=== PATIENT | male | born 1950 | race Hispanic/Latino ===

== ENCOUNTER 2018-01-20 08:24 | Day surgery (SDC) | payer MEDICARE ==
[2018-01-08 15:24] VITALS: BMI 30.8
[2018-01-20] MEDS ORDERED: Propofol 10 mg/ml Inj (20 ML) ONE (10:02)
[2018-01-20] MEDS ORDERED: Sodium Chloride 0.9% 1,000 ML IV SCH (11:15)
[2018-01-20 14:26] VITALS: BP 123/78; PULSE 53; RESP 16; TEMP 98.1; O2SAT 97
== END 2018-01-20 13:14 | disposition home or self-care (01) ==
LOC: ENDO 08:24
PROVIDERS: ATTEND Internal Medicine Gastroenterology
DX: K31.7 Polyp of stomach and duodenum (principal); K29.50 Unspecified chronic gastritis without bleeding; D12.3 Benign neoplasm of transverse colon; K57.30 Diverticulosis of large intestine without perforation or abscess without bleeding; K64.8 Other hemorrhoids
CPT/HCPCS: 43239; 45380; 88305; 88312; 88342; J2001; J2704; J3010; J7040 ×2